=== PATIENT | female | born 1955 | race Caucasian/White ===

== ENCOUNTER 2019-09-10 15:45 | Emergency (ER) | payer BC ==
[2019-09-10 17:30] LABS: INFLUENZA A NEGATIVE (NEGATIVE); INFLUENZA B NEGATIVE (NEGATIVE)
[2019-09-10] MEDS ORDERED: IPRATROPIUM/ALBUTEROL (0.5MG/3MG) NEB INH ONE (18:04)
--- NOTE | 2019-09-10 18:33 | RADIOLOGY REPORT ---
EXAMINATION: Two View Chest Radiographs EXAM DATE: 09/10/2019 6:03 PM TECHNIQUE: Frontal and lateral views INDICATION: cough COMPARISON: November 28, 2018 ENCOUNTER: Not applicable FINDINGS: The heart, mediastinum, and pulmonary vasculature are stable. Lung sosa remain hyperexpanded. Infil trate left lung base posteriorly retrocardiac. No pneumothorax or pleural effusion. IMPRESSION: Infiltrate left lung base posteriorly Dictated by: Alize Caba MD on 09/10/2019 6:24 PM. .
--- NOTE | 2019-09-10 18:44 | Emergency Department Record ---
History of Present Illness - General Chief Complaint: Cough Stated Complaint: ENT Time Seen by Provider: 09/10/19 17:13 Source: Patient Mode of Arrival: Ambulatory Limitations: No limitations - History of Present Illness Initial Comments: pt has congestion and a cough for several days. the cough is productive green. pt also c/o canker sores and fever blister Complaint: Cough, Nasal congestion, Rhinorrhea Onset/Timin -: Days(s) Severity: Moderate Consistency: Getting worse Improves With: Nothing Worsens With: Nothing Associated Symptoms: Cough, Nasal congestion, Rhinorrhea - Related Data Home Medications Medication Instructions Recorded Confirmed Last Taken Cetirizine HCl/Pseudoephedrine 1 each PO ASDIR 09/10/19 09/10/19 Unknown [Zyrtec-D Tablet] Fluticasone Propionate [Flonase] 2 spray EACH NARES DAILY 09/10/19 09/10/19 Unknown Losartan Potassium 25 mg PO DAILY 09/10/19 09/10/19 Unknown Montelukast Sodium 10 mg PO DAILY 09/10/19 09/10/19 Unknown Previous Rx's Medication Instructions Recorded Acyclovir 200 mg PO Q6HR #30 capsule 09/10/19 Amoxicillin/Potassium Clav 1 each PO BID #20 tablet 09/10/19 [Augmentin 875Mg/125Mg] Allergies Allergy/AdvReac Type Severity Reaction Status Date / Time ciprofloxacin [From Cipro] Allergy HIVES Verified 09/10/19 16:44 Travel Screening - Travel/Exposure Within Last 30 Days Have you traveled within the last 30 days?: No Review of Systems Reviewed: No additional complaints except as noted below Constitutional: Reports: As per HPI. Denies: Chills, Fever, Malaise, Night sweats, Weakness, Weight change Eyes: Reports: As per HPI. Denies: Eye discharge, Eye pain, Photophobia, Vision change ENT: Reports: As per HPI. Denies: Congestion, Dental pain, Ear pain, Epistaxis, Hearing loss, Throat pain Respiratory: Reports: As per HPI. Denies: Cough, Dyspnea, Hemoptysis, Stridor, Wheezes Cardiovascular: Reports: As per HPI. Denies: Arrhythmia, Chest pain, Dyspnea on exertion, Edema, Murmurs, Orthopnea, Palpitations, Paroxysmal nocturnal dyspnea, Rheumatic Fever, Syncope Endocrine: Reports: As per HPI. Denies: Fatigue, Heat or cold intolerance, Polydipsia, Polyuria Gastrointestinal: Reports: As per HPI. Denies: Abdominal pain, Constipation, Diarrhea, Hematemesis, Hematochezia, Melena, Nausea, Vomiting Genitourinary: Reports: As per HPI. Denies: Abnormal menses, Discharge, Dyspareunia, Dysuria, Frequency, Hematuria, Incontinence, Retention, Urgency Musculoskeletal: Reports: As per HPI. Denies: Arthralgia, Back pain, Gout, Joint swelling, Myalgia, Neck pain Skin: Reports: As per HPI. Denies: Bruising, Change in color, Change in hair/nails, Lesions, Pruritus, Rash Neurological: Reports: As per HPI. Denies: Abnormal gait, Confusion, Headache, Numbness, Paresthesias, Seizure, Tingling, Tremors, Vertigo, Weakness Psychiatric: Reports: As per HPI. Denies: Anxiety, Auditory hallucinations, Depression, Homicidal thoughts, Suicidal thoughts, Visual hallucinations Hematological/Lymphatic: Reports: As per HPI. Denies: Anemia, Blood Clots, Easy bleeding, Easy bruising, Swollen glands Past Medical History - SOCIAL HISTORY Smoking Status: Never smoker Alcohol Use: None Drug Use: None - RESPIRATORY Hx Respiratory Disorders: Yes Comment:: muscle memory cough - CARDIOVASCULAR Hx Cardio Disorders: Yes Hx Hypertension: Yes - NEURO Hx Neuro Disorders: No - GI Hx GI Disorders: No - Hx Genitourinary Disorders: No - ENDOCRINE Hx Endocrine Disorders: No - MUSCULOSKELETAL Hx Musculoskeletal Disorders: No - PSYCH Hx Psych Problems: No - HEMATOLOGY/ONCOLOGY Hx Hematology/Oncology Disorders: No Family Medical History Any Significant Family History?: No Physical Exam - General General Appearance: Alert, Oriented x3, Cooperative, Mild distress - Head Head exam: Normal inspection - Eye Eye exam: Normal appearance, PERRL, EOMI Pupils: Normal accommodation - ENT ENT exam: Normal exam, Mucous membranes moist, Normal external ear exam, Other (canker sores) Ear exam: Normal external inspection. negative: External canal tenderness Nasal Exam: Normal inspection. negative: Discharge, Sinus tenderness Mouth exam: Normal external inspection, Tongue normal, Other (herpes simplex) Teeth exam: Normal inspection. negative: Dental caries Throat exam: Normal inspection. negative: Tonsillar erythema, Tonsillar exudate - Neck Neck exam: Normal inspection, Full ROM. negative: Tenderness - Respiratory Respiratory exam: Normal lung sounds bilaterally. negative: Respiratory distress - Cardiovascular Cardiovascular Exam: Regular rate, Normal rhythm, Normal heart sounds - GI/Abdominal GI/Abdominal exam: Soft, Normal bowel sounds. negative: Tenderness - Rectal Rectal exam: Deferred - exam: Deferred - Extremities Extremities exam: Normal inspection, Full ROM, Normal capillary refill. negative: Tenderness - Back Back exam: Reports: Normal inspection, Full ROM. Denies: Muscle spasm, Rash noted, Tenderness - Neurological Neurological exam: Alert, CN II-XII intact, Normal gait, Oriented X3 - Psychiatric Psychiatric exam: Normal affect, Normal mood - Skin Skin exam: Dry, Intact, Normal color, Warm Course Vital Signs 09/10/19 09/10/19 16:39 18:21 Temperature 98.2 F Pulse Rate 84 81 Respiratory 20 18 Rate Blood Pressure 145/97 Pulse Ox 95 99 - Reevaluation(s) Reevaluation #1: 09/10/19 18:42 cxr shows lll pneumonia Medical Decision Making - Lab Data Lab Results 09/10/19 Range/Units 16:58 Influenza Type A Ag Negative (NEGATIVE) Influenza Type B Ag Negative (NEGATIVE) Disposition Disposition: Discharge Clinical Impression: Herpes simplex Pneumonia Qualifiers: Pneumonia type: due to unspecified organism Laterality: left Lung location: lower lobe of lung Qualified Code(s): J18.9 - Pneumonia, unspecified organism Disposition: Home, Self-Care Condition: (1) Good Instructions: Bacterial Pneumonia (ED), Oral Herpes Simplex Virus Infections (ED) Additional Instructions: follow up with family doctor. return sooner if worse. use nebulizer at home. tylenol and motrin as needed Prescriptions: Acyclovir 200 mg PO Q6HR #30 capsule Amoxicillin/Potassium Clav [Augmentin 875Mg/125Mg] 1 each PO BID #20 tablet Quality - Quality Measures Quality Measures: N/A - Blood Pressure Screening Does Patient Have Any of the Following: Active Dx of HTN Blood Pressure Classification: Hypertensive Reading Systolic Measurement: 145 Diastolic Measurement: 97 Screening for High Blood Pressure: Patient Exclusion, Hx of HTN [[id number]]
== END 2019-09-10 19:01 | disposition home or self-care (01) ==
LOC: ER 15:45
DX: J18.9 Pneumonia, unspecified organism (principal); B00.1 Herpesviral vesicular dermatitis; I10 Essential (primary) hypertension
CPT/HCPCS: 71046; 87400; 94640; 99284